=== PATIENT | female | born 1980 | race Asian ===

== ENCOUNTER 2018-06-04 11:16 | Emergency (ER) | payer OTHER ==
--- OUTSIDE RECORDS SUMMARY | 2018-06-04 11:22 | XMS REPORT | Continuity of Care Document ---
:1980 External Reference #:[id number] Author Name Latanya Santiago Care Team Providers Name Role Phone Ilan Mayers OD Care Team Information Decision Support Manager Unavailable Payers Type Date Identification Numbers Payment Provider Subscriber Policy Number: [id number] [employer] Angelito Marino PayID: [id number] [address] [place] [address] Advance Directives Description No Information Available Problems Description No Information Family History Description No Information Available Social History Type Date Description Comments Sex Unknown ETOH Use Occasionally consumes alcohol Tobacco Use Start: Unknown Patient has never smoked Smoking Status Reviewed: 05/08/18 Patient has never smoked Allergies, Adverse Reactions, Alerts Description No Known Drug Allergies Medications Description No Active Medications Immunizations Description No Information Available Vital Signs Description No Information Available Results Description No Information Available Procedures Date Code Description Status 05/08/2018 89924 Refraction Completed 05/08/2018 301 Contact Lens Fit $25 Completed Encounters Type Date Location Provider Dx Diagnosis Office Visit 05/08/2018 2:30p Main Office Ilan Mayers OD H52.13 Myopia , bilateral H04.123 Dry eye syndrome of bilateral lacrimal glands Plan of Treatment No Information Available
[2018-06-04 11:39] VITALS: BP 109/69
== END 2018-06-04 11:45 | disposition left against medical advice (07) ==
LOC: UCEAST 11:16
DX: Z53.21 Procedure and treatment not carried out due to patient leaving prior to being seen by health care provider (principal)

== ENCOUNTER 2019-02-07 17:52 | Inpatient (IN) | payer OTHER ==
[2019-02-07] MEDS ORDERED: Penicillin G Potassium IV* 5,000,000 UNITS in NS 0.9% 100 ML* 100 ML IVPB ONE (18:15)
[2019-02-07] MEDS ORDERED: Buffered Lidocaine 1% SYRIN* 1 ML/SYRINGE INTRADERM ONE (18:15)
[2019-02-07] MEDS ORDERED: Lactated Ringers 1000 ML Bag* 1,000 ML IV ONE ×2 (18:15→20:27)
[2019-02-07 18:35] LABS: ABS Lymphocytes 1.4 10^3/ul (1.0-4.8); ABS Monocytes 0.5 10^3/ul (0-0.8); ABS Neutrophils 7.4 10^3/ul (1.5-7.7); Eosinophil % 0.4 %; Hematocrit 37 % (35-47); Lymphocyte % 14.9 %; Mean Corpuscular HGB Conc 35 g/dL (31-36); Mean Corpuscular Hemoglobin 30 pg (27-31); Mean Corpuscular Volume 87 fL (80-97); Mean Platelet Volume 7.5 fL (7.4-10.4); Platelet Count 273 10^3/uL (150-450); Red Blood Count 4.26 10^6 /uL (3.70-4.87); Red Cell Distribution Width 13 % (10-15); White Blood Count 9.3 10^3/uL (3.5-10.8)
[2019-02-07] MEDS ORDERED: Lactated Ringers 1000 ML Bag* 1,000 ML IV SCH ×2 (19:00→21:00)
[2019-02-07 19:10] LABS: Urine Benzodiazepine Screen None Detected (None Detect); Urine Opiates Screen None Detected (None Detect)
--- NOTE | 2019-02-07 19:10 | HP ---
General Information - Reason for Visit Pt reports uterine contractions x 1-2 hours getting progressively longer, stronger, closer together. - General Information Maternal Age: 38 Grav: 2 Para: 1 SAB: 0 IEA: 0 Estimated Due Date: 02/08/19 Determined By: LMP Maternal Blood Type and Rh: B Positive - Results this Serology/RPR Result: Non-Reactive Rubella Result: Immune HBsAg Result: Negative HIV Result: Negative GBS Culture Result: Positive Past Medical History Delivery History: Hx C/Section Pertinent Past Medical History: See Records - depression/ anxiety Pertinent Past Surgical History: See Records - foot surgery, Pertinent Family History: Non-Contributory - Antepartal Records Antepartal Records: Reviewed, Complicated by: - hx prior , age 38 at delivery, GBS positive. Review of Systems Constitutional: Uncomfortable CV Complaint: No Respiratory: Shortness of Breath: No Gastrointestinal: Normal Bowel Movement, Nausea Genitourinary: No Dysuria, No Bleeding, No Leaking Fluid Musculoskeletal: No Epigastric Pain, Contractions Neurological: No Headache, No Visual Changes Movement: Normal Exam Allergies/Adverse Reactions: Allergies No Known Allergies Allergy (Verified 06/04/18 11:39) Vital Signs 02/07/19 18:00 Temperature 97.4 F Pulse Rate 65 Respiratory 20 Rate Blood Pressure 123/73 (mmHg) O2 Sat by Pulse 100 Oximetry Lab Values - Entire Visit: Laboratory Tests 02/07/19 18:15 WBC 9.3 RBC 4.26 Hgb 13.0 Hct 37 MCV 87 MCH 30 MCHC 35 RDW 13 Plt Count 273 MPV 7.5 Neut % (Auto) 78.9 Lymph % (Auto) 14.9 Perkins % (Auto) 5.4 Eos % (Auto) 0.4 Baso % (Auto) 0.4 Absolute Neuts (auto) 7.4 Absolute Lymphs (auto) 1.4 Absolute Monos (auto) 0.5 Absolute Eos (auto) 0.0 Absolute Basos (auto) 0.0 Absolute Nucleated RBC 0.0 Nucleated RBC % 0.0 - Measurements Height: 4 ft 11 in Weight: 62.142 kg Weight in lbs: 137.525626 Body Mass Index (BMI): 27.6 Pre- Weight: 44.906 kg Weight Gained This : 38 lbs and 0 ozs - Exam Breast: Breast Exam Deferred CVA: No CVA Tenderness Extremities: No Edema Heart: Normal Rhythm/Heart Sounds HEENT: No Significant Findings Lungs: Clear Bilaterally Rectal: Rectal Exam Deferred Reflexes: DTR 2+ Thyroid: No Thyromegaly - Abdominal Exam Abdomen Exam: Non-Tender - Ultrasound/Biophysical Profile Ultrasound Status: Not Done Targeted Exam Findings See L&D Outpatient Visit Provider Note for Findings: N/A Estimated Weight: 7.5# Cervical Exam: 2cm Effacement: 80% Station: -1 Presenting Part: Vertex Membrane Status: Intact Bleeding/Discharge: None EFM Findings - External Monitor Findings Baseline Heart Rate: 130 External Monitor Findings: Accelerations Present, No Pattern of Variable or Late Decelerations, Variability Moderate, Baseline Stable Contractions: Irregular, Moderate, 45-90 Seconds Contraction Frequency: 5-8 minutes (was 3-5 minutes on arrival) Assessment/Plan - Assessment 38 year old with hx prior in early labor with intact membranes, no evidence of acidemia. - Obstetrical Risk Factors Obstetrical Risk Factors: GBS Positive, Previous C/Section in Labor - Plan Plan: Antibiotic Prophylaxis, Admit - Anticipate Vaginal Delivery Plan Comment: Dr. Sam notified of pt's presence in unit and admission in early labor. He will come be present in the hospital. Anesthesia notified as well and will be in house as well. - Date/Time of Admission Date of Admission: 02/07/19 Time of Admission: 18:19
[2019-02-07] MEDS ORDERED: OBEPIDURAL* 250 ML EPIDURAL ONE (19:36)
--- NOTE | 2019-02-07 20:05 | PN ---
Progress Note - Progress Note Date of Service: 02/07/19 SOAP: Subjective: Pt with increasing discomfort with ctx. Requests epidural. Objective: UC frequency variable. Sometimes every 2-3 minutes, other times as far as 5-8 minutes apart. FHR baseline 130, moderate variability, + accels, no decels Cervical exam attempted by Dr. Sam, pt unable to tolerate Membranes intact Assessment: Pt appears to be getting more active. No evidence of acidemia. Plan: Anesthesia requested for epidural. Will recheck pt after epidural placed.
[2019-02-07] MEDS ORDERED: Lidocaine 1% INJ* 10 MG/ML 30 ML SDV ONE (20:08)
[2019-02-07] MEDS ORDERED: Famotidine TAB* 20 MG PO PRN (20:27)
[2019-02-07] MEDS ORDERED: EPHEDrine (Pressors)* 50 MG/ML VIAL IV PUSH PRN ×2 (20:27)
[2019-02-07] MEDS ORDERED: Phenylephrine 40 MCG/ML SYRINGE IV PUSH PRN (20:27)
[2019-02-07] MEDS ORDERED: Sodium Citrate/Citric Acid* 15 ML UDC PO PRN (20:27)
[2019-02-07] MEDS ORDERED: OBEPIDURAL* 250 ML EPIDURAL SCH (21:00)
--- NOTE | 2019-02-07 22:54 | PN ---
Progress Note - Progress Note Date of Service: 02/07/19 SOAP: Subjective: Pt dozing in bed, also having some shaking. Comfortable with epidural. Objective: FHR: Baseline 135, moderate variability, no accels, no decels UCs: Q5 minutes, 50-90 seconds Cervical exam deferred at this time, last exam at 2105 was 3 cm/ 80%/ 0 station / vtx Membranes intact Some bloody show Assessment: No evidence of acidemia, appears to be in active labor. Plan: Recheck cervix in about an hour, consider AROM at that time. Continuous EFM. Family Health Nurse Practitioner and anesthesiologist will remain in house until after pt delivers. Dr. Sam updated to pt status.
--- NOTE | 2019-02-08 00:30 | PN ---
Progress Note - Progress Note Date of Service: 02/08/19 SOAP: Subjective: Pt remains comfortable with epidural, feels a little bit more sensation, but able to sleep soundly. Objective: Cervix: 4 cm/ 90%/ 0 station/ bulging bag FHR: Baseline 135/ moderate variability/ + accels/ no decels UCs: 5-7 minutes, 60 seconds AROM to clear, blood tinged fluid Assessment: Pt making slow but steady progress. No evidence of acidemia. Plan: AROM performed with pt consent. Will recheck in a couple hours or as needed. Abx prophylaxis in place for GBS. Continuous EFM.
[2019-02-08] MEDS: Phenylephrine 40 MCG/ML SYRINGE IV PUSH PRN ×2 (02:33→02:47)
[2019-02-08] MEDS: Penicillin G Potassium IV* 2,500,000 UNITS in NS 0.9% 100 ML* 100 ML IVPB SCH ×3 (03:23→20:10)
--- NOTE | 2019-02-08 04:06 | PN ---
Progress Note - Progress Note Date of Service: 02/08/19 SOAP: Subjective: Pt still fairly comfortable, reports some increased pressure with contractions. Has been sleeping intermittently. Objective: FHR: Baseline 140, moderate variability, no accels, early decels at this time. Pt had some variable and late decels earlier, associated with decrease in maternal BP which was treated by RN with phenylephrine per anesthesia orders. BP then improved as did FHR tracing. UCs:3-7 minutes Cervix: 9cm/ 100%/ +1/ vtx Temp: 99.0 Assessment: Pt making very good progress. Had some decels likely associated with hypotension. FHR currently Category I. Plan: Position changes, continuous EFM. Begin trial of pushing with full dilation. Anticipate . Manager Reading and anesthesiologist in house until after delivery.
[2019-02-08] MEDS ORDERED: Oxytocin in LR* 0 UNITS/0 ML BAG IVPB ONE (04:23)
[2019-02-08] MEDS ORDERED: Oxytocin in LR* 20 UNITS/1,000 ML BAG IVPB ONE (04:43)
--- NOTE | 2019-02-08 05:29 | PN ---
Progress Note - Progress Note Date of Service: 02/08/19 SOAP: Subjective: Pt still with minimal pain from ctx. Having some shaking and nausea, vomited twice. Coached on pushing with ctx. Objective: Cervix: fully dilated, +1 station FHR: Baseline 140, moderate variability, + accels, no decels UCs:2-5 minutes, 50-90 seconds Pushing fairly effectively although sensation/ urge to push is minimal Temp: 99.2 Assessment: Pt made good progress to full dilation. No evidence of acidemia. No evidence of chorioamnionitis. 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 Anticipate .
--- NOTE | 2019-02-08 07:47 | PN ---
Progress Note - Progress Note Date of Service: 02/08/19 SOAP: Subjective: Pt becoming fatigued, tearful. States "I can't keep doing this." Objective: Pt pushing effectively with some contractions, others are either less strong, or pushing less effectively. While pushing crown slightly visible at introitus. FHR baseline 150, moderate variability, no accels, variable decels with pushing , rapid return to baseline between pushes. UCs: 2-4 minutes Temp: 99.7 Assessment: Pt progressing but slowly, becoming fatigued. No evidence of acidemia. Plan: Pt evaluated by Dr. Madison. Will continue to push for now. If inadequate descent or maternal fatigue and inability to continue, will request Dr. Madison evaluate for feasibility of vacuum assisted delivery vs . Dr. Avelar also was in to see pt and reduced rate of epidural in order to allow pt more sensation for pushing.
[2019-02-08] MEDS ORDERED: Witch Hazel PAD* JAR ONE (09:24)
[2019-02-08] MEDS ORDERED: Dibucaine 1% 28.35 GM TUBE ONE (09:24)
[2019-02-08] MEDS ORDERED: Misoprostol TAB* 200 MCG ONE (09:28)
[2019-02-08] MEDS ORDERED: Lidocaine 1% INJ* 10 MG/ML 30 ML SDV ONE (09:31)
[2019-02-08] MEDS ORDERED: Chloroprocaine 3%* 20 ML VIAL ONE (09:36)
[2019-02-08] MEDS ORDERED: Chloroprocaine 2%* 20 ML VIAL ONE (09:36)
[2019-02-08] MEDS ORDERED: Glycerin ADULT SUPP PR PRN (10:09)
[2019-02-08] MEDS ORDERED: Dibucaine 1% 28.35 GM TUBE PR PRN (10:09)
[2019-02-08] MEDS ORDERED: Acetaminophen TAB* 325 MG PO PRN (10:09)
[2019-02-08] MEDS: Ibuprofen TAB* 600 MG PO PRN ×2 (10:21→18:45)
[2019-02-08] MEDS ORDERED: Oxytocin in LR* 20 UNITS/1,000 ML BAG IVPB SCH (11:00)
[2019-02-08] MEDS ORDERED: Lactated Ringers 1000 ML Bag* 1,000 ML IV SCH (11:00)
[2019-02-08] MEDS ORDERED: Simethicone TAB* 80 MG TAB.CHEW PO SCH (12:30)
--- NOTE | 2019-02-08 16:27 | PROCNOTE ---
[facility] OB: Delivery Note - Delivery A Date of : 02/08/19 Time of : 09:13 Sex: Male Weight at : 7 lb 8 oz Score 1 Minute: 8 Score 5 Minutes: 9 Gestational Age in Weeks and Days at Delivery: 40 Weeks and 0 Days Delivery Method: Low Forceps Vaginal Labor: Spontaneous Did Patient attempt ?: Yes, Successful Amniotic Fluid: Clear Estimated Blood Loss: 350 Anesthesia/Analgesia: CEI for Labor Delivered By: Willy Burleson Nursery Level of Nursery: Regular/Bedside - Perineum Perineal Injury: 3rd Degree Extension - Events Delivery Events of Note: Pitocin Only After Delivery, Post- Bleeding - Meds Given, Pushed > 3 Hours - see delivery note and dictated op note Delivery Events of Note Comment: 400mcg cytotec buccal
[2019-02-08] MEDS: Docusate CAP* 100 MG PO SCH ×2 (19:54→20:09)
--- NOTE | 2019-02-08 21:23 | OP ---
OPERATIVE DELIVERY NOTE: DATE OF OPERATION: 02/08/19. DATE OF : [birth year]. SURGEON: Willy Burleson M.D. ANESTHESIA: Epidural. PRE-OP DIAGNOSIS: Arrest of descent, maternal exhaustion, and persistent occiput posterior. POST-OP DIAGNOSIS: Arrest of descent, maternal exhaustion, and persistent occiput posterior. OPERATIVE PROCEDURE: COMPLICATIONS: Include 3rd degree laceration. FINDINGS: This is a 38-year-old 2, para 1, who was attempting a . She had progressed no rmally up to fully dilated and pushed for approximately 3 hours with no further descent. She and I d iscussed the options of section versus forceps. Dr. Madison had talked to her about the pos sibility of vacuum, but felt like that was not going to be effective. My vaginal exam showed that sh e was +4 cm with pushing with a right occiput posterior baby with the vertex filling the pelvis. Aft er discussion with the patient and the risks discussed mainly about vaginal tears for her as well as potential facial palsy or other injuries to baby, we decided to proceed with a low forceps delivery. DESCRIPTION OF PROCEDURE: The epidural was bolused. The Loya forceps were applied with the plan to deliver in the right occiput posterior position. With easy traction, the baby was delivered in th e posterior manner. A tear occurred at that time and baby was delivered, is a male. Apgars 8 and 9, weight was 7 pounds 8 ounces. The 3rd degree laceration was repaired in the usual fashion using 2-0 Vicryl along the sphincter and in the midline, 3-0 Vicryl was used to bring the vaginal mucosa and t he pelvic fascia together in the midline. The rest of it was closed in the usual episiotomy fashion. Fingers were used to check and make sure there was no hole in the bowel and there was not any 4th d egree laceration and the sphincter came together well. She was given Cytotec buccally and given IV P itocin with good hemostasis. The patient returned to the recovery room in stable condition. [id number]/[facility] #: [id number]
[2019-02-09] MEDS: Ibuprofen TAB* 600 MG PO PRN ×4 (01:17→21:59)
[2019-02-09] MEDS ORDERED: Phenylephrine 40 MCG/ML SYRINGE ONE (05:50)
[2019-02-09 08:46] LABS: ABS Basophils 0.1 10^3/ul (0-0.2); ABS Lymphocytes 1.9 10^3/ul (1.0-4.8); ABS Monocytes 0.6 10^3/ul (0-0.8); Eosinophil % 0.3 %; Hematocrit 26 % (35-47); Hemoglobin 8.9 g/dL (12.0-16.0); Lymphocyte % 12.9 %; Mean Corpuscular HGB Conc 34 g/dL (31-36); Mean Corpuscular Hemoglobin 31 pg (27-31); Mean Corpuscular Volume 89 fL (80-97); Mean Platelet Volume 7.2 fL (7.4-10.4); Platelet Count 207 10^3/uL (150-450); Red Cell Distribution Width 13 % (10-15); White Blood Count 14.6 10^3/uL (3.5-10.8)
[2019-02-09] MEDS: Docusate CAP* 100 MG PO SCH ×3 (09:23→21:59)
[2019-02-09] MEDS: Witch Hazel PAD* JAR TOPICAL PRN (09:23)
[2019-02-09] MEDS: Ferrous Gluconate TAB* 324 MG TAB PO SCH ×2 (10:17→21:59)
[2019-02-10] MEDS: Ibuprofen TAB* 600 MG PO PRN ×2 (03:53→10:57)
[2019-02-10] MEDS: Witch Hazel PAD* JAR TOPICAL PRN (04:16)
[2019-02-10] MEDS: Docusate CAP* 100 MG PO SCH (08:28)
[2019-02-10 10:38] VITALS: BP 118/62
== END 2019-02-10 12:25 | disposition home or self-care (01) | DRG 768 ==
LOC: MCHOBOUT 17:52 → MCHOB 18:19
PROVIDERS: ATTEND Obstetrics & Gynecology
PROC: 10D07Z3 Extraction of Products of Conception, Low Forceps, Via Natural or Artificial Opening (ICD-10-PCS; principal; 2019-02-08)
PROC: 0DQR0ZZ Repair Anal Sphincter, Open Approach (ICD-10-PCS; 2019-02-08)
PROC: 10907ZC Drainage of Amniotic Fluid, Therapeutic from Products of Conception, Via Natural or Artificial Opening (ICD-10-PCS; 2019-02-08)
DX: O75.81 Maternal exhaustion complicating labor and delivery (principal); Z37.0 Single live birth; O99.824 Streptococcus B carrier state complicating childbirth; O34.211 Maternal care for low transverse scar from previous cesarean delivery; O99.344 Other mental disorders complicating childbirth; F41.8 Other specified anxiety disorders; O70.20 Third degree perineal laceration during delivery, unspecified; O32.4XX0 Maternal care for high head at term, not applicable or unspecified; O32.8XX0 Maternal care for other malpresentation of fetus, not applicable or unspecified; O90.81 Anemia of the puerperium; D64.9 Anemia, unspecified; Z3A.40 40 weeks gestation of pregnancy
CPT/HCPCS: 36415; 80307; 85025; 86850; 86900; 86901; A9270-GY; J2400; J2540